=== PATIENT | male | born 1995 | race Caucasian/White ===

== ENCOUNTER 2017-11-27 20:02 | Emergency (ER) | payer OTHER ==
[~2017-11-27] VITALS: Ht 188 cm; Wt 81.6 kg
== END 2017-11-27 21:49 | disposition home or self-care (01) ==
LOC: ER 20:02
DX: S93.491A Sprain of other ligament of right ankle, initial encounter (principal); X50.3XXA Overexertion from repetitive movements, initial encounter; Y93.66 Activity, soccer; Y92.89 Other specified places as the place of occurrence of the external cause; Y99.8 Other external cause status

== ENCOUNTER 2018-08-20 21:42 | Emergency (ER) | payer OTHER ==
[~2018-08-20] VITALS: Ht 182.9 cm; Wt 88.5 kg
== END 2018-08-20 22:48 | disposition home or self-care (01) ==
LOC: ER 21:42
DX: S00.33XA Contusion of nose, initial encounter (principal); W50.0XXA Accidental hit or strike by another person, initial encounter; Y93.89 Activity, other specified; Y92.89 Other specified places as the place of occurrence of the external cause; Y99.8 Other external cause status

== ENCOUNTER 2021-01-21 23:11 | Emergency (ER) | payer OTHER ==
[~2021-01-21] VITALS: Ht 182.9 cm; Wt 108.9 kg
[2021-01-22] MEDS ORDERED: ASPIRINA (00:03)
[2021-01-22] MEDS ORDERED: NAPROZEN (00:04)
[2021-01-22] MEDS ORDERED: PREDNISONE20 M1 PO (03:06)
[2021-01-22] MEDS ORDERED: ACETAMINOPHEN650 M2 PO (03:06)
== END 2021-01-22 04:57 | disposition home or self-care (01) ==
LOC: ER 23:11
DX: G51.0 Bell's palsy (principal); Z11.52 Encounter for screening for COVID-19